=== PATIENT | female | born 1990 | race Hispanic/Latino ===

== ENCOUNTER 2017-10-31 09:12 | Emergency (ER) | payer MEDICAID ==
[2017-10-31 09:38] LABS: BASOPHILS % (AUTO) 0.7 % (0.0-5.0); EOSINOPHILS % (AUTO) 0.5 % (0.0-8.0); HEMATOCRIT 35.6 % (36-48); LYMPHOCYTES % (AUTO) 27.6 % (21.0-51.0); MEAN CORPUSCULAR HGB CONC 34.7 g/dL (32.0-36.0); MEAN CORPUSCULAR VOLUME 80.5 fL (79-99); MONOCYTES % (AUTO) 7.1 % (3.0-13.0); NEUTROPHILS % (AUTO) 64.1 % (40.0-77.0); PLATELET COUNT (AUTO) 262 K/uL (130-400); RED BLOOD CELL COUNT(AUTO) 4.42 MIL/uL (4.00-5.50); WHITE BLOOD COUNT (AUTO) 6.6 K/uL (4.8-10.8)
[2017-10-31 09:39] LABS: BILIRUBIN,URINE Negative (NEGATIVE); COLOR,URINE Yellow (YELLOW); GLUCOSE, URINE (UA) Negative (NEGATIVE); KETONES,URINE Negative (NEGATIVE); LEUKOCYTE ESTERASE ,URINE Small (NEGATIVE); NITRATE,URINE Negative (NEGATIVE); OCCULT BLOOD,URINE Large (NEGATIVE); PROTEIN,URINE Negative (NEGATIVE)
[2017-10-31 09:41] LABS: APPEARANCE,URINE CLEAR (CLEAR)
[2017-10-31 09:45] LABS: CREATININE 0.6 mg/dL (0.5-1.5); POTASSIUM 3.7 mmol/L (3.5-5.1)
[2017-10-31 09:59] LABS: BACTERIA,URINE Many /HPF (None Seen)
[2017-10-31 10:00] LABS: MUCUS,URINE Many LPF (None Seen)
[2017-10-31 10:11] LABS: ALBUMIN 4.1 g/dL (3.5-5.0); BILIRUBIN,TOTAL 0.2 mg/dL (0.2-1.0); TOTAL PROTEIN, SERUM 7.8 g/dL (6.0-8.3)
== END 2017-10-31 10:45 | disposition home or self-care (01) ==
LOC: EDH 09:12
DX: O20.0 Threatened abortion (principal); Z3A.01 Less than 8 weeks gestation of pregnancy
CPT/HCPCS: 36415; 76801; 80053; 81001; 84702; 85025; 86900; 86901

== ENCOUNTER 2017-12-11 15:58 | Emergency (ER) | payer MEDICAID ==
[2017-12-11 16:47] LABS: BASOPHILS % (AUTO) 0.3 % (0.0-5.0); EOSINOPHILS % (AUTO) 0.2 % (0.0-8.0); HEMATOCRIT 32.3 % (36-48); LYMPHOCYTES % (AUTO) 13.6 % (21.0-51.0); MEAN CORPUSCULAR HEMOGLOBIN 27.5 pg (27.0-33.0); MEAN CORPUSCULAR HGB CONC 34.4 g/dL (32.0-36.0); MONOCYTES % (AUTO) 6.3 % (3.0-13.0); NEUTROPHILS % (AUTO) 79.6 % (40.0-77.0); PLATELET COUNT (AUTO) 226 K/uL (130-400); RED BLOOD CELL COUNT(AUTO) 4.04 MIL/uL (4.00-5.50); RED CELL DISTRIBUTION WIDTH 15.4 % (11.0-15.5); WHITE BLOOD COUNT (AUTO) 9.9 K/uL (4.8-10.8)
[2017-12-11 16:47] LABS: APPEARANCE,URINE SL CLOUDY (CLEAR); BILIRUBIN,URINE NEGATIVE (NEGATIVE); COLOR,URINE YELLOW (YELLOW); GLUCOSE, URINE (UA) NEGATIVE (NEGATIVE); KETONES,URINE 5 mg/dL (NEGATIVE); LEUKOCYTE ESTERASE ,URINE MODERATE (NEGATIVE); NITRATE,URINE NEGATIVE (NEGATIVE); OCCULT BLOOD,URINE NEGATIVE (NEGATIVE); PH,URINE 7.5 (5.0-8.0); PROTEIN,URINE 30 (NEGATIVE); UROBILINOGEN,URINE 0.2 mg/dL (0.2-1.0)
[2017-12-11 16:59] LABS: CREATININE 0.5 mg/dL (0.5-1.5); POTASSIUM 3.5 mmol/L (3.5-5.1)
[2017-12-11] MEDS ORDERED: SODIUM CHLORIDE 0.9% 1000ML 1,000 ML IV ONE (17:01)
[2017-12-11 17:12] LABS: MAGNESIUM 1.9 mg/dL (1.80-2.40); THYROID STIMULATING HORMONE 0.01 uIU/mL (0.36-3.74)
[2017-12-11 17:42] LABS: RBC,URINE 0-1 /HPF (0-1)
[2017-12-11 17:43] LABS: BACTERIA,URINE Few /HPF (None Seen); MUCUS,URINE Few LPF (None Seen); SQUAMOUS EPITHELIAL CELL,UR Moderate /HPF (0-2)
== END 2017-12-11 18:29 | disposition home or self-care (01) ==
LOC: EDH 15:58
DX: O99.281 Endocrine, nutritional and metabolic diseases complicating pregnancy, first trimester (principal); E03.9 Hypothyroidism, unspecified; R00.2 Palpitations; Z3A.11 11 weeks gestation of pregnancy; Z87.891 Personal history of nicotine dependence
CPT/HCPCS: 36415; 76801; 80048; 81001; 83735; 84443; 85025; 87088; 87186; 93005; 96360; 99285; J7030

== ENCOUNTER 2018-05-31 18:14 | Observation (INO) | payer MEDICAID ==
[~2018-05-31] VITALS: Ht 157.5 cm; Wt 81.2 kg
[2018-05-31 18:53] LABS: BILIRUBIN,URINE Negative (NEGATIVE); COLOR,URINE Orange (YELLOW); GLUCOSE, URINE (UA) Negative (NEGATIVE); KETONES,URINE Negative (NEGATIVE); LEUKOCYTE ESTERASE ,URINE Large (NEGATIVE); NITRATE,URINE Negative (NEGATIVE); OCCULT BLOOD,URINE Large (NEGATIVE); PROTEIN,URINE Negative (NEGATIVE)
[2018-05-31 18:55] LABS: APPEARANCE,URINE SLIGHTLY CLOUDY (CLEAR)
[2018-05-31 19:02] LABS: RBC,URINE 51-100 /HPF (0-1)
[2018-05-31 19:03] LABS: BACTERIA,URINE Few /HPF (None Seen); SQUAMOUS EPITHELIAL CELL,UR Few /HPF (0-2)
[2018-05-31 19:06] LABS: TRANSITIONAL EPI CELLS,URINE Few /HPF (None Seen)
[2018-05-31] MEDS ORDERED: TERBUTALINE SULFATE VIAL 1MG/ML SQ ONE (19:42)
[2018-05-31] MEDS: TERBUTALINE SULFATE VIAL 1MG/ML SQ PRN ×3 (19:49→21:56)
[2018-05-31] MEDS: LACTATED RINGERS 1000ML 1,000 ML IV SCH ×2 (19:49→21:27)
[2018-05-31 20:00] VITALS: BP 114/67
[2018-05-31] MEDS ORDERED: MEPERIDINE HCL 50 MG TABLET PO PRN (22:15)
[2018-05-31] MEDS ORDERED: PROMETHAZINE HCL 25 MG/ML 1ML AMPULE IM PRN (22:15)
[2018-05-31] MEDS ORDERED: CALCIUM GLUCONATE 1 GM/10 ML VIAL IV PRN (22:15)
[2018-05-31] MEDS ORDERED: MAGNESIUM 4GM PREMIX 100ML 100 ML IV SCH (22:15)
[2018-05-31] MEDS ORDERED: MAGNESIUM 4GM PREMIX 100ML 100 ML IV ONE (22:20)
[2018-05-31] MEDS ORDERED: MAGNESIUM SULFATE 1,000 ML IV ONE (22:20)
[2018-05-31] MEDS ORDERED: AMPICILLIN 2GM+NS 100ML 100 ML IV ONE (22:21)
[2018-05-31] MEDS: AMPICILLIN 2GM+NS 100ML 100 ML IV SCH (22:30)
[2018-05-31] MEDS ORDERED: MAGNESIUM SULFATE 1,000 ML IV SCH (22:45)
[2018-06-01 03:17] LABS: HEMATOCRIT 24.6 % (36-48); MEAN CORPUSCULAR HEMOGLOBIN 24.5 pg (27.0-33.0); MEAN CORPUSCULAR HGB CONC 32.2 g/dL (32.0-36.0); MEAN CORPUSCULAR VOLUME 75.9 fL (79-99); PLATELET COUNT (AUTO) 214 K/uL (130-400); RED BLOOD CELL COUNT(AUTO) 3.24 MIL/uL (4.00-5.50); RED CELL DISTRIBUTION WIDTH 16.9 % (11.0-15.5); WHITE BLOOD COUNT (AUTO) 9.2 K/uL (4.8-10.8)
[2018-06-01] MEDS: AMPICILLIN 2GM+NS 100ML 100 ML IV SCH ×2 (04:30→10:42)
[2018-06-01] MEDS: LACTATED RINGERS 1000ML 1,000 ML IV SCH (05:26)
[2018-06-01] MEDS ORDERED: MEPERIDINE-PF 25 MG/ML SYG IVP PRN (05:30)
[2018-06-01 07:37] LABS: RAPID PLASMA REAGIN NONREACTIVE (NONREACTIVE)
[2018-06-02 07:24] LABS: HEPATITIS Bs ANTIGEN SCREEN P Negative (Negative)
== END 2018-06-01 13:00 | disposition home or self-care (01) ==
LOC: EDH 18:14 → LDH 18:30
PROVIDERS: ADMIT Obstetrics & Gynecology; ATTEND Obstetrics & Gynecology
DX: O60.03 Preterm labor without delivery, third trimester (principal); O46.93 Antepartum hemorrhage, unspecified, third trimester; Z3A.35 35 weeks gestation of pregnancy
CPT/HCPCS: 36415; 81001; 82120; 83735; 85027; 86592; 86701; 86850; 86900; 86901; 87340; 87390; 96365; 96366 ×2; 96368; 96372; 99285; A4510; A4600; G0378 ×18; J0290 ×3; J3105; J3475 ×2; J7120; 96360; 96361

== ENCOUNTER 2019-08-26 16:57 | Emergency (ER) | payer MEDICAID, OTHER ==
[2019-08-26] MEDS ORDERED: ACETAMINOPHEN 325 MG TAB ONE (17:19)
== END 2019-08-26 17:47 | disposition home or self-care (01) ==
LOC: EDH 16:57
DX: J11.1 Influenza due to unidentified influenza virus with other respiratory manifestations (principal); Z90.49 Acquired absence of other specified parts of digestive tract